=== PATIENT | female | born 1970 | race Caucasian/White ===

== ENCOUNTER 2017-08-13 07:55 | Emergency (ER) | payer OTHER ==
[~2017-08-13] VITALS: Ht 167.6 cm; Wt 56.7 kg
[~2017-08-13 07:55] MED LIST: CYMBALTA60 MG PO; NAPROSYN250 MG PO; TRAMADOL 50 MG50 MG PO
[2017-08-13] MEDS ORDERED: HYDROCODONE-AP1 EAC6 PO (08:05)
[2017-08-13] MEDS ORDERED: CHILDREN'S ASPI81 M1 PO (08:06)
[2017-08-13] MEDS ORDERED: NOLVADEX20 MG PO (08:06)
[2017-08-13] MEDS ORDERED: NAPROSYN500 MG PO (09:23)
[2017-08-13 09:36] VITALS: BP 122/72
== END 2017-08-13 09:41 | disposition home or self-care (01) ==
LOC: ER 07:55
DX: M72.2 Plantar fascial fibromatosis (principal); J45.909 Unspecified asthma, uncomplicated; F17.210 Nicotine dependence, cigarettes, uncomplicated

== ENCOUNTER → 2018-06-07 | Outpatient (CLI) | payer OTHER ==
[~2018-06-07] MED LIST changes: +CHILDREN'S ASPI81 M1 PO; +HYDROCODONE-AP1 EAC6 PO; +NAPROSYN500 MG PO; +NOLVADEX20 MG PO
== END ==
LOC: ULTRA 07:13
DX: N83.02 Follicular cyst of left ovary (principal); N83.291 Other ovarian cyst, right side; R10.9 Unspecified abdominal pain; Z90.710 Acquired absence of both cervix and uterus

== ENCOUNTER → 2019-11-25 | Outpatient (CLI) | payer OTHER | LOC: LAB 10:20 | PROVIDERS: ATTEND Family Medicine | DX: Z20.828 Contact with and (suspected) exposure to other viral communicable diseases (principal) ==

== ENCOUNTER → 2020-02-19 | Outpatient (CLI) | payer OTHER | LOC: LAB 09:17 | PROVIDERS: ATTEND Family Medicine | DX: Z20.828 Contact with and (suspected) exposure to other viral communicable diseases (principal) ==